=== PATIENT | female | born 1990 | race Caucasian/White ===

== ENCOUNTER 2019-05-14 23:49 | Inpatient (IN) | payer OTHER ==
[~2019-05-14] VITALS: Ht 154.9 cm; Wt 61.7 kg
[~2019-05-14 23:49] MED LIST: CIPRO500 MG PO; IBUPROFEN 400400 M1 PO; LEXAPRO 10 MG T10 M1; ONDANSETRON HCL4 M2 PO; PHENERGAN 25 MG25 M1 PO; PREDNISONE50 MG PO; SLEEPING PILL; TMP-POLYMYXIN B10 ML OP; VICODIN 5-5001 EACH PO; ZOFRAN 4 MG ORAL4 MG PO
[2019-05-14 23:51] VITALS: BP 129/90
[2019-05-15] MEDS ORDERED: RISPERDAL0.5 MG PO (00:06)
[2019-05-15] MEDS ORDERED: XANAX1 MG PO (00:06)
[2019-05-15] MEDS ORDERED: LAMOTRIGINE250 MG PO (00:07)
[2019-05-15] MEDS ORDERED: LEXAPRO20 MG PO (00:09)
[2019-05-15] MEDS ORDERED: LAMICTAL150 MG PO (00:09)
[2019-05-15 00:14] LABS: ABSOLUTE EOSINOPHILS 0.1 thou/uL (0.0-0.7); ABSOLUTE LYMPHOCYTES 3.6 thou/uL (0.8-5.3); ABSOLUTE MONOCYTES 0.5 thou/uL (0.0-1.2); ABSOLUTE NEUTROPHILS 5.5 thou/uL (1.6-8.1); BASOPHILS 0.3 %; EOSINOPHILS 0.6 %; HEMATOCRIT 46.9 % (37.0-47.0); HEMOGLOBIN 15.9 gm/dL (12.0-15.0); MCH 31.2 pg (26.0-34.0); MCHC 33.9 g/dL (28.0-37.0); MCV 92.1 fL (80.0-100.0); MONOCYTES 5.6 %; MPV 8.8 fl. (7.2-11.1); NUCLEATED RBCS 0 /100WBC; PLATELET COUNT* 291 thou/uL (150-400); POLYS 56.5 %; RBC 5.09 mil/uL (4.20-5.00); RDW-CV 12.9 % (10.5-14.5); WBC 9.8 thou/uL (4.0-11.0)
[2019-05-15 00:23] LABS: INR 1.1; PROTIME 11.6 Seconds (9.20-11.50)
[2019-05-15 00:24] LABS: CALCIUM 9.2 mg/dL (8.5-10.1); CREATININE 1.3 mg/dL (0.6-1.3); POTASSIUM 3.3 mmol/L (3.5-5.1)
[2019-05-15 00:35] LABS: TOTAL BILIRUBIN 0.6 mg/dL (<0.1-1.0); TOTAL PROTEIN 7.5 g/dL (6.4-8.2)
[2019-05-15 00:36] LABS: SALICYLATE < 2.8 mg/dL (2.8-20.0)
[2019-05-15 00:37] LABS: ACETAMINOPHEN < 2 ug/mL (10-30); ALCOHOL < 10 mg/dL (<10)
[2019-05-15 00:42] LABS: BE -7.9 mmol/L (-2 to +3)
[2019-05-15 00:44] LABS: PO2 52.6 mmHg (75.0-100.0); pH 7.226 (7.340-7.450)
[2019-05-15 01:40] LABS: INFLUENZA A ANTIGEN Negative (Negative); INFLUENZA B ANTIGEN Negative (Negative)
[2019-05-15 02:13] LABS: URINE BILIRUBIN NEGATIVE (Negative); URINE BLOOD 1+ (Negative); URINE CLARITY CLEAR; URINE COLOR YELLOW; URINE GLUCOSE-RANDOM 1+ (Negative); URINE KETONES TRACE (Negative); URINE LEUKOCYTES-REFLEX NEGATIVE (Negative); URINE NITRITE-REFLEX NEGATIVE (Negative); URINE PROTEIN 1+ (Negative); URINE SPECIFIC GRAVITY >= 1.030 (1.005-1.030); URINE UROBILINOGEN 0.2 E.U./dl (0.2-1.0)
[2019-05-15 02:21] LABS: AMP/METHAMP Negative (Negative); BARBITURATES Negative (Negative); BENZODIAZEPINES POSITIVE (Negative); COCAINE Negative (Negative); METHADONE Negative (Negative); OPIATES Negative (Negative); PCP Negative (Negative); THC POSITIVE (Negative)
[2019-05-15 02:25] LABS: SQUAMOUS 4-10 Moderate /LPF (0-3); URINE WBC-REFLEX 6-15 Few /HPF (0-5)
[2019-05-15 02:26] LABS: BACTERIA-REFLEX >30 Many /HPF (None Seen); CRYSTALS None Seen /LPF (None Seen); FINE GRANULAR CASTS 0-3 Few /LPF (None Seen); HYALINE CASTS 0-3 Few /LPF (None Seen); MUCUS 4-6 Moderate strn/LPF (None Seen); URINE RBC 3-10 Few /HPF (0-2)
[2019-05-15 04:15] VITALS: BP 84/46
[2019-05-15 08:15] VITALS: BP 81/44
[2019-05-15 08:30] VITALS: BP 99/61
[2019-05-15 09:00] VITALS: BP 107/56
--- NOTE | 2019-05-15 15:23 | NUR ---
PT SLEEPING, BUT ARROUSABLE AND ABLE TO HOLD CONVERSATION. A/O X'S 4. AT INITIAL ASSESSMENT NO C/O PAIN. AROUND 10 PT C/O OF PAIN IN CHEST AND HEADACHE. PRN TYLENOL AND LATER IBUPROFEN ADMININSTERED PER SEP. BIPAP TAKEN OFF PER DR'S ORDERS. PT PLACED ON 4L NC, TITRATED DOWN TO 2L NC. PT DESATS TO 83 WHEN OXYGEN TAKEN OFF. PT >94% WITH 2L NC. PT C/O OF NAUSEA. PRN ZOFRAN ADMINISTERED PER SEP. SALIVA NOTICED. NO EMESIS. POTASSIUM 3.3. REPLACED PER PROTOCOL. PT VOIDING PER BSC WITH MINIMAL ASSISTANCE.
[2019-05-15 16:08] VITALS: BP 95/47
--- NOTE | 2019-05-15 18:21 | NUR ---
PATIENT TRANSFERRED FROM ICU TO ROOM 316. REPORT RECEIVED FROM MARION LUDWIG. NO COMPLAINTS OF PAIN. IV SL. [address] PATIENT FAMILY BRINGING PATIENT DINNER THIS EVENING. CALL LIGHT WITHIN REACH, WILL CONTINUE TO MONITOR.
[2019-05-16 05:15] LABS: HEMATOCRIT 34.8 % (37.0-47.0); MCH 30.5 pg (26.0-34.0); MCHC 33.8 g/dL (28.0-37.0); MCV 90.2 fL (80.0-100.0); MPV 8.6 fl. (7.2-11.1); RBC 3.85 mil/uL (4.20-5.00); WBC 9.8 thou/uL (4.0-11.0)
[2019-05-16 05:18] LABS: HEMOGLOBIN 11.8 gm/dL (12.0-15.0)
[2019-05-16 05:21] LABS: CALCIUM 9.1 mg/dL (8.5-10.1); CREATININE 0.6 mg/dL (0.6-1.3); MAGNESIUM 2.1 mg/dL (1.8-2.4); POTASSIUM 4.2 mmol/L (3.5-5.1)
--- NOTE | 2019-05-16 06:09 | NUR ---
PATIENT WAS EXPERIENCING ANXIETY AT BEGINNING OF SHIFT. OTHERWISE SHE WAS VERY COOPERATIVE. GOT AN ORDER FOR XANAX AND MELATONIN AND SHE WAS ABLE TO SLEEP THROUGH THE SHIFT. SHE DID NOT REPORT ANY PAIN OR WORSENING OF CONDITIONS. PLAN IS FOR A CHEST XRAY TODAY. WILL CONTINUE TO MONITOR.
[2019-05-16] MEDS ORDERED: PREDNISONE 10 M10 M1 PO (10:09)
[2019-05-16] MEDS ORDERED: IBUPROFEN 400400 M1 PO (10:09)
[2019-05-16] MEDS ORDERED: ASPERCREME1 EACH TOP (10:09)
[2019-05-16] MEDS ORDERED: AMOX TR-K CLV1 EAC3 PO (10:09)
[2019-05-16] MEDS ORDERED: CULTURELLE KID1 EAC1 PO (10:09)
[2019-05-16] MEDS ORDERED: ZOFRAN ODT4 MG PO (10:09)
[2019-05-16 11:17] VITALS: BP 95/47
[2019-05-16 12:48] VITALS: BP 95/47
--- NOTE | 2019-05-16 12:48 | NUR ---
PT GIVEN DISCHARE INFORMATION, CARE NOTES, AND PRESCRIPTIONS. IV REMOVED. FALL RISK PRECAUTIONS IN PLACE. HOURLY ROUNDING COMPLETED. PT BELONGINGS GATHERED. PT LEFT VIA WHEELCHAIR WITH NURSING STAFF TO HOME.
--- NOTE | 2019-05-18 08:34 | EKG ---
[place] [address] ELECTROCARDIOGRAM REPORT Name: CAMMIE ESPOSITO Room: [address] DIS IN M.R.#: [id number] Admission: 05/15/19 Attend Phys: Taqueria Eisenberg MD Discharge: 05/16/19 Date of : 89 Report #: [id number] THIS REPORT FOR: //name// [facility] ED Test Date: 2019-05-15 Test Time: 00:36:30 Pat Name: CAMMIE FARIASMARCELINOMARY Department: Room: [address] Gender: F Filling Carrier: GEOVANNY : 1990 Requested By: Pushpa Real Order Number: [id number] MD: Darwin Brambila Measurements Intervals [place] Rate: 134 P: 71 OK: 135 QRS: 106 QRSD: 91 T: -46 QT: 324 QTc: 484 Interpretive Statements Sinus tachycardia Consider right atrial enlargement Borderline right axis deviation Nonspecific T abnormalities, inferior leads Borderline prolonged QT interval Compared to ECG 01/19/2014 15:06:31 T-wave abnormality now present Sinus rhythm no longer present Electronically Signed On 05-18-2019 8:34:13 CDT by Darwin Brambila [email or web address] <ELECTRONICALLY SIGNED> By: Darwin Brambila MD, FACC 05/18/19 0834 Darwin Brambila MD, FACC /EPI
== END 2019-05-16 12:54 | disposition home or self-care (01) | DRG 917 ==
LOC: M.ERS 23:49 → M.ICU 05-15 01:53 → M.3W 05-15 01:53 → M.TBA-ER 05-15 01:53 → M.ICU 05-15 02:13 → M.3W 05-15 18:09
PROVIDERS: Emergency Medicine; ADMIT Internal Medicine
PROC: 5A09357 Assistance with Respiratory Ventilation, Less than 24 Consecutive Hours, Continuous Positive Airway Pressure (ICD-10-PCS; principal; 2019-05-15)
DX: T40.2X1A Poisoning by other opioids, accidental (unintentional), initial encounter (principal); J96.01 Acute respiratory failure with hypoxia; J96.02 Acute respiratory failure with hypercapnia; J69.0 Pneumonitis due to inhalation of food and vomit; S22.20XA Unspecified fracture of sternum, initial encounter for closed fracture; R04.89 Hemorrhage from other sites in respiratory passages; F31.9 Bipolar disorder, unspecified; F90.9 Attention-deficit hyperactivity disorder, unspecified type; F17.210 Nicotine dependence, cigarettes, uncomplicated; E16.2 Hypoglycemia, unspecified; K75.89 Other specified inflammatory liver diseases; F41.1 Generalized anxiety disorder; X58.XXXA Exposure to other specified factors, initial encounter; Y93.89 Activity, other specified; Z79.899 Other long term (current) drug therapy; Y92.89 Other specified places as the place of occurrence of the external cause; Y99.8 Other external cause status